=== PATIENT | male | born 1985 | race Caucasian/White ===

== ENCOUNTER 2022-10-10 15:46 | Emergency (ER) | payer BC, SELFPAY ==
[2022-10-10 15:49] VITALS: BP 142/85; PULSE 63; RESP 18; TEMP 36.4; O2SAT 98; BMI 22.7
--- NOTE | 2022-10-10 16:03 | ED.GENADULT ---
HPI - General Adult General Chief complaint: Laceration/Wound Stated complaint: left hand webbing laceration Time Seen by Provider: 10/10/22 15:59 History of Present Illness HPI narrative: Lac to L hand between thumb and 2nd digit from pocket knife 36-year-old man presenting to the emergency department after sustaining a cut to his hand. Was trying to cut a zip tie from son's fishing carley when the pocket knife slipped and punctured his left hand inner space between thumb and index finger. Just could not get the bleeding to stop prior to arrival at the ER though it has stopped now apparently. There is moderate tenderness here. No reported loss of sensation or function. The knife was clean. He did cleanse copiously with soap and water. Related Data Home Medications Medication Instructions Recorded Confirmed No Known Home Medications 10/10/22 10/10/22 Allergies Allergy/AdvReac Type Severity Reaction Status Date / Time No Known Drug Allergies Allergy Verified 10/10/22 15:52 Review of Systems Status of ROS: Reports: 6 or more systems reviewed and unremarkable except as noted in History and below Exam Narrative: Exam Narrative: Pleasant. NAD. Hand. Examination of the left hand shows some moderate swelling will dried blood around the interspace between thumb and index finger. In this webbing there is a 1 cm laceration that gaps with opening hand. Not actively bleeding outside of manipulation. Opens and closes all fingers. Sensation appears to be intact. Well perfused. Const: Vital Signs, click to edit/add: Vital Signs - 24 hr 10/10/22 15:49 Temperature 97.5 F L Pulse Rate [Pulse Oximeter] 63 Respiratory Rate 18 Blood Pressure [Ri ght Upper Arm] 142/85 H Pulse Oximetry 98 Oxygen Delivery Me thod Room Air Documenting provider has reviewed patient's vital signs: yes Course Vital Signs Vital signs: Initial Vital Signs Temperature 97.5 F L 10/10/22 15:49 Temperature Source Temporal Artery Scan 10/10/22 15:49 Pulse Rate 63 10/10/22 15:49 Respiratory Rate 18 10/10/22 15:49 Blood Pressure 142/85 H 10/10/22 15:49 Blood Pressure Mean 104 10/10/22 15:49 Blood Pressure Position Supine 10/10/22 15:49 Pulse Oximetry 98 10/10/22 15:49 Oxygen Delivery Method Room Air 10/10/22 15:49 Vital Signs Temperature 97.5 F L 10/10/22 15:49 Pulse Rate 63 10/10/22 15:49 Respiratory Rate 18 10/10/22 15:49 Blood Pressure 142/85 H 10/10/22 15:49 Pulse Oximetry 98 10/10/22 15:49 Oxygen Delivery Method Room Air 10/10/22 15:49 Temperature 97.5 F L 10/10/22 15:49 Pulse Rate 63 10/10/22 15:49 Respiratory Rate 18 10/10/22 15:49 Blood Pressure 142/85 H 10/10/22 15:49 Pulse Oximetry 98 10/10/22 15:49 Oxygen Delivery Method Room Air 10/10/22 15:49 Medical Decision Making MDM Narrative Medical decision making narrative: I did discuss just wrapping it up as it seems to have semi-sealed itself but given his work does sound to be better if it would be sutured. Return to anesthetize with lidocaine with epinephrine. Cleansed with Shur-Clens type solution and placed 2 interrupted 5 0 Ethilon sutures. Dressed with antibiotic ointment Band-Aid light pressure dressing. Tolerated well. Tetanus current. See patient discharge plan Discharge Plan Discharge Clinical Impression: Hematoma, Hand laceration Patient Disposition: Home, Self-Care Condition: Improved Additional Instructions: Elevate, ibuprofen, acetaminophen for comfort. sutures out in 8 - 10 days. antibiotic ointment for 4 - 5 days and then to a dry dressing. ok to get wet but try not to soak while sutures are in. Watch for spreading redness after 2 days accompanied by heat, swelling, marked increase in pain, purulent drainage. Prescriptions: No Action No Known Home Medications Stand [facility]one [facility]: [facility] Info Instructions
== END 2022-10-10 16:51 | disposition home or self-care (01) ==
LOC: ED 16:36
PROVIDERS: Emergency Provider Family Medicine
DX: S61.412A Laceration without foreign body of left hand, initial encounter (principal); S60.222A Contusion of left hand, initial encounter; W26.0XXA Contact with knife, initial encounter
CPT/HCPCS: 12001; 99283; 99284